=== PATIENT | female | born 1975 | race Caucasian/White ===

== ENCOUNTER 2018-10-13 14:00 | Emergency (ER) | payer MEDICAID ==
[~2018-10-13] VITALS: Ht 185.4 cm; Wt 178.5 kg
[2018-10-13 14:14] VITALS: BP 166/93
[2018-10-13] MEDS ORDERED: CIPR-230 PO (14:46)
== END 2018-10-13 14:56 | disposition home or self-care (01) ==
LOC: ER 14:01
DX: H92.22 Otorrhagia, left ear (principal); H92.02 Otalgia, left ear; I10 Essential (primary) hypertension; J45.909 Unspecified asthma, uncomplicated; Z88.0 Allergy status to penicillin; Z88.1 Allergy status to other antibiotic agents; Z88.2 Allergy status to sulfonamides; Z79.2 Long term (current) use of antibiotics
CPT/HCPCS: 99283